=== PATIENT | male | born 1950 | race Caucasian/White ===

== ENCOUNTER 2018-10-14 01:58 | Emergency (ER) | payer MEDICARE, BC ==
[2018-10-14 02:10] LABS: URINE BILIRUBIN NEGATIVE (NEGATIVE); URINE BLOOD SMALL (NEGATIVE); URINE GLUCOSE (UA) NEGATIVE (NEGATIVE); URINE KETONE NEGATIVE (NEGATIVE); URINE LEUKOCYTE ESTERASE MODERATE (NEGATIVE); URINE NITRITE NEGATIVE (NEGATIVE); URINE PROTEIN NEGATIVE (NEGATIVE); URINE UROBILINOGEN 0.2 E.U./dL (0.20 - 1.00)
[2018-10-14 02:11] LABS: URINE APPEARANCE SL CLOUDY; URINE COLOR YELLOW
[2018-10-14 02:15] LABS: URINE BACTERIA FEW; URINE EPITHELIAL CELLS 0 - 2 (FEW); URINE RBC 0 - 2 (NONE SEEN)
[2018-10-14] MEDS ORDERED: CIPROFLOXACIN HCL 500 MG TABLET PO ONE (02:39)
[2018-10-14] MEDS ORDERED: ACETAMINOPHEN 500 MG TABLET PO ONE (02:40)
--- NOTE | 2018-10-14 02:45 | Emergency Department Record ---
History of Present Illness - General Chief complaint: Male Urogenital Problem Stated complaint: UTI/FEVER Time Seen by Provider: 10/14/18 02:19 Source: Patient Mode of Arrival: Ambulatory Limitations: No limitations - History of Present Illness Initial comments: Pt to ED with for concern of bladder infection. Noted urine with strong odor two days ago. Tonight urinary frequency and urgency with fever. No flank pain, no nausea. Hx of similar twice in the past. No hx renal stones. No blood in urine. Onset/Timin -: Days(s) Quality: Aching Reports: Fever - Related Data Sexually active: Yes Home Medications Medication Instructions Recorded Confirmed Last Taken Lisinopril [Zestril] 5 mg PO DAILY 10/14/18 10/14/18 Unknown Simvastatin 10 mg PO DAILY 10/14/18 10/14/18 10/14/18 Tamsulosin HCl [Flomax] 0.4 mg PO DAILY 10/14/18 10/14/18 10/14/18 Previous Rx's Medication Instructions Recorded Ciprofloxacin HCl [Cipro] 500 mg PO Q12HR 7 Days #14 tablet 10/14/18 Allergies Allergy/AdvReac Type Severity Reaction Status Date / Time No Known Drug Allergies Allergy Verified 10/14/18 02:06 Travel Screening - Travel/Exposure Within Last 30 Days Have you traveled within the last 30 days?: No - Travel/Exposure Within Last Year Have you traveled outside the [place] in the last year?: No - Additonal Travel Details Have you been exposed to anyone with a communicable illness?: No - Travel Symptoms Symptom Screening: None Review of Systems Constitutional: Reports: Chills, Fever. Denies: Weakness Eyes: Denies: Eye discharge ENT: Denies: Congestion, Ear pain Respiratory: Denies: Cough Cardiovascular: Denies: Chest pain, Syncope Endocrine: Denies: Fatigue Gastrointestinal: Denies: Abdominal pain, Vomiting Genitourinary: Reports: As per HPI, Frequency, Urgency Musculoskeletal: Denies: Arthralgia, Back pain Skin: Denies: Bruising Neurological: Denies: Headache, Weakness Psychiatric: Denies: Anxiety Hematological/Lymphatic: Denies: Anemia Past Medical History - SOCIAL HISTORY Smoking Status: Never smoker Alcohol Use: None Drug Use: None - RESPIRATORY Hx Respiratory Disorders: No - CARDIOVASCULAR Hx Cardio Disorders: Yes Hx Hypertension: Yes Comment:: high cholesterol - NEURO Hx Neuro Disorders: No - GI Hx GI Disorders: No - Hx Prostate Problems: Yes Hx UTI: Yes - ENDOCRINE Hx Endocrine Disorders: No - MUSCULOSKELETAL Hx Musculoskeletal Disorders: No - PSYCH Hx Psych Problems: No - HEMATOLOGY/ONCOLOGY Hx Hematology/Oncology Disorders: No Family Medical History Any Significant Family History?: No Physical Exam - General General Appearance: Alert, Oriented x3, Cooperative, No acute distress - Head Head exam: Atraumatic - Eye Eye exam: Normal appearance, PERRL - ENT ENT exam: Mucous membranes moist Nasal Exam: Normal inspection Mouth exam: Normal external inspection - Neck Neck exam: Normal inspection - Respiratory Respiratory exam: Normal lung sounds bilaterally. negative: Respiratory distress - Cardiovascular Cardiovascular Exam: Regular rate, Normal rhythm - GI/Abdominal GI/Abdominal exam: Soft, Normal bowel sounds. negative: Guarding, Tenderness - Extremities Extremities exam: Normal inspection - Back Back exam: Reports: Normal inspection. Denies: CVA tenderness (R), CVA tenderness (L), Paraspinal tenderness - Neurological Neurological exam: Alert, Normal gait, Oriented X3 - Psychiatric Psychiatric exam: Normal affect, Normal mood - Skin Skin exam: Normal color Course Vital Signs 10/14/18 02:03 Temperature 101.2 F H Pulse Rate [ 97 H Pulse Ox Probe] Respiratory 20 Rate Blood Pressure 132/83 [Left Arm] Pulse Ox 99 - Reevaluation(s) Reevaluation #1: 10/14/18 02:49 seen and exam. Evidence of UTI. Culture sent. First dose Cipro and tylenol in ED. Home Medical Decision Making - Lab Data Lab Results 10/14/18 Range/Units 02:10 Urine Color Yellow Urine Appearance Sl cloudy Urine pH 7.0 (5.0-8.0) Ur Specific [place] 1.010 (1.002-1.030) Urine Protein Negative (NEGATIVE) Urine Glucose (UA) Negative (NEGATIVE) Urine Ketones Negative (NEGATIVE) Urine Blood Small H (NEGATIVE) Urine Nitrite Negative (NEGATIVE) Urine Bilirubin Negative (NEGATIVE) Urine Urobilinogen 0.2 (0.20 - 1.00) E.U./dL Ur Leukocyte Esterase Moderate H (NEGATIVE) Urine RBC 0 - 2 (NONE SEEN) Urine WBC 6 - 10 (0-2/hpf) Ur Epithelial Cells 0 - 2 (FEW) Urine Bacteria Few Disposition Disposition: Discharge Clinical Impression: UTI (urinary tract infection) Disposition: Home, Self-Care Condition: (1) Good Instructions: Urinary Tract Infection in Men (ED) Additional Instructions: take meds as instructed. See your physician in 3 days Return to the ED as needed. Prescriptions: Ciprofloxacin HCl [Cipro] 500 mg PO Q12HR 7 Days #14 tablet Forms: Patient Portal Access Time of Disposition: 02:45 Quality - Quality Measures Quality Measures: N/A - Blood Pressure Screening Does Patient Have Any of the Following: No Blood Pressure Classification: Pre-Hypertensive BP Reading Systolic Measurement: 132 Diastolic Measurement: 83 Screening for High Blood Pressure: < Pre-Hypertensive BP, F/U Documented > [G8950] Pre-Hypertensive Follow-up Interventions: Follow-up with rescreen every year.
== END 2018-10-14 02:56 | disposition home or self-care (01) ==
LOC: ER 01:58
DX: N39.0 Urinary tract infection, site not specified (principal); R50.81 Fever presenting with conditions classified elsewhere; I10 Essential (primary) hypertension
CPT/HCPCS: 81001; 99283

== ENCOUNTER 2018-10-14 21:16 | Inpatient (IN) | payer MEDICARE, BC ==
[2018-10-14] MEDS ORDERED: 0.9 % SODIUM CHLORIDE 1,000 ML BAG IV ONE ×2 (21:56→22:50)
[2018-10-14] MEDS ORDERED: IBUPROFEN 600 MG TABLET PO ONE (21:58)
[2018-10-14 21:59] LABS: ABSOLUTE NEUTROPHIL COUNT 19.93; HEMOGLOBIN 14.6 gm/dl (14.0-18.0); MEAN CELL VOLUME 84.8 fl (81-97); MEAN CORPUSCULAR HEMOGLOBIN 28.8 pg (27-33); MEAN PLATELET VOLUME 9.9 fl (7.4-10.4); PLATELET COUNT 185 K/uL (130-400); RED BLOOD COUNT 5.07 M/uL (4.40-5.70)
[2018-10-14 22:00] LABS: WHITE BLOOD COUNT W/O DIFF 23.6 K/uL (4.2-12.2)
[2018-10-14 22:13] LABS: BILIRUBIN,TOTAL 1.5 mg/dL (0.2-1.0); TOTAL PROTEIN 6.5 g/dL (6.6-8.7)
[2018-10-14 22:14] LABS: ALB/GLOB RATIO 1.7 (1.1-1.8); ALBUMIN 4.1 g/dL (4.0-5.0); CREATININE 1.4 mg/dL (0.7-1.2)
[2018-10-14 22:20] LABS: URINE APPEARANCE CLEAR; URINE BILIRUBIN NEGATIVE (NEGATIVE); URINE BLOOD SMALL (NEGATIVE); URINE COLOR YELLOW; URINE GLUCOSE (UA) NEGATIVE (NEGATIVE); URINE KETONE NEGATIVE (NEGATIVE); URINE LEUKOCYTE ESTERASE MODERATE (NEGATIVE); URINE NITRITE NEGATIVE (NEGATIVE); URINE PROTEIN NEGATIVE (NEGATIVE); URINE UROBILINOGEN 0.2 E.U./dL (0.20 - 1.00)
--- NOTE | 2018-10-14 22:24 | Emergency Department Record ---
History of Present Illness - General Chief Complaint: Fever Stated Complaint: FEVER Time Seen by Provider: 10/14/18 21:47 Source: Patient Mode of Arrival: Ambulatory Limitations: No limitations - History of Present Illness Initial Comments: pt was here 20 hrs ago for fever and uti. he states hes no better and, in fact, feels worse. he has body aches and chills and fever. no n/v. he took tylenol but is still running a temp.hes had 3 doses of cipro Complaint: Fever, Weakness Onset/Timin -: Days(s) Maximum Temperature: 104 F Temperature Source: Oral Associated Symptoms: Chills, Myalgias, Rigors Treatments Prior to Arrival: Acetaminophen Treatment Prior to Arrival Comment:: 700 mg - Related Data Previous Rx's Medication Instructions Recorded Ciprofloxacin HCl [Cipro] 500 mg PO Q12HR 7 Days #14 tablet 10/14/18 Allergies Allergy/AdvReac Type Severity Reaction Status Date / Time No Known Drug Allergies Allergy Verified 10/14/18 21:48 Travel Screening - Travel/Exposure Within Last 30 Days Have you traveled within the last 30 days?: No - Travel/Exposure Within Last Year Have you traveled outside the [place] in the last year?: No - Additonal Travel Details Have you been exposed to anyone with a communicable illness?: No - Travel Symptoms Symptom Screening: None Review of Systems Reviewed: No additional complaints except as noted below Constitutional: Reports: As per HPI, Chills, Fever, Malaise, Weakness. Denies: Night sweats, Weight change Eyes: Reports: As per HPI. Denies: Eye discharge, Eye pain, Photophobia, Vision change ENT: Reports: As per HPI. Denies: Congestion, Dental pain, Ear pain, Epistaxis, Hearing loss, Throat pain Respiratory: Reports: As per HPI. Denies: Cough, Dyspnea, Hemoptysis, Stridor, Wheezes Cardiovascular: Reports: As per HPI. Denies: Arrhythmia, Chest pain, Dyspnea on exertion, Edema, Murmurs, Orthopnea, Palpitations, Paroxysmal nocturnal dyspnea, Rheumatic Fever, Syncope Endocrine: Reports: As per HPI. Denies: Fatigue, Heat or cold intolerance, Polydipsia, Polyuria Gastrointestinal: Reports: As per HPI. Denies: Abdominal pain, Constipation, Diarrhea, Hematemesis, Hematochezia, Melena, Nausea, Vomiting Genitourinary: Reports: As per HPI. Denies: Dysuria, Frequency, Hematuria, Incontinence, Retention, Testicular pain, Testicular mass, Urgency Musculoskeletal: Reports: As per HPI, Myalgia. Denies: Arthralgia, Back pain, Gout, Joint swelling, Neck pain Skin: Reports: As per HPI. Denies: Bruising, Change in color, Change in hair/nails, Lesions, Pruritus, Rash Neurological: Reports: As per HPI. Denies: Abnormal gait, Confusion, Headache, Numbness, Paresthesias, Seizure, Tingling, Tremors, Vertigo, Weakness Psychiatric: Reports: As per HPI. Denies: Anxiety, Auditory hallucinations, Depression, Homicidal thoughts, Suicidal thoughts, Visual hallucinations Hematological/Lymphatic: Reports: As per HPI. Denies: Anemia, Blood Clots, Easy bleeding, Easy bruising, Swollen glands Past Medical History - SOCIAL HISTORY Smoking Status: Never smoker Alcohol Use: None Drug Use: None - RESPIRATORY Hx Respiratory Disorders: No - CARDIOVASCULAR Hx Cardio Disorders: Yes Hx Hypertension: Yes Comment:: high cholesterol - NEURO Hx Neuro Disorders: No - GI Hx GI Disorders: No - Hx Prostate Problems: Yes Hx UTI: Yes - ENDOCRINE Hx Endocrine Disorders: No - MUSCULOSKELETAL Hx Musculoskeletal Disorders: No - PSYCH Hx Psych Problems: No - HEMATOLOGY/ONCOLOGY Hx Hematology/Oncology Disorders: No Family Medical History Any Significant Family History?: No Physical Exam - General General Appearance: Alert, Oriented x3, Cooperative, Mild distress - Head Head exam: Normal inspection - Eye Eye exam: Normal appearance, PERRL, EOMI Pupils: Normal accommodation - ENT ENT exam: Normal exam, Mucous membranes moist, Normal external ear exam, Normal orophraynx Ear exam: Normal external inspection. negative: External canal tenderness Nasal Exam: Normal inspection. negative: Discharge, Sinus tenderness Mouth exam: Normal external inspection, Tongue normal Teeth exam: Normal inspection. negative: Dental caries Throat exam: Normal inspection. negative: Tonsillar erythema, Tonsillar exudate - Neck Neck exam: Normal inspection, Full ROM. negative: Tenderness - Respiratory Respiratory exam: Normal lung sounds bilaterally. negative: Respiratory distress - Cardiovascular Cardiovascular Exam: Normal rhythm, Normal heart sounds, Tachycardia - GI/Abdominal GI/Abdominal exam: Soft, Normal bowel sounds. negative: Tenderness - Rectal Rectal exam: Deferred - exam: Deferred - Extremities Extremities exam: Normal inspection, Full ROM, Normal capillary refill. negative: Tenderness - Back Back exam: Reports: Normal inspection, Full ROM. Denies: Muscle spasm, Rash noted, Tenderness - Neurological Neurological exam: Alert, CN II-XII intact, Normal gait, Oriented X3 - Psychiatric Psychiatric exam: Normal affect, Normal mood - Skin Skin exam: Dry, Intact, Normal color, Warm Course Vital Signs 10/14/18 10/14/18 21:26 21:48 Temperature 101.9 F H 101.9 F H Pulse Rate [ 135 H Pulse Ox Probe] Respiratory 20 20 Rate Blood Pressure 90/65 [Left Arm] Pulse Ox 96 Medical Decision Making - Lab Data Result diagrams: 10/14/18 21:45 10/14/18 21:45 Lab Results 10/14/18 10/14/18 Range/Units 21:45 21:45 WBC 23.6 H* (4.2-12.2) K/uL RBC 5.07 (4.40-5.70) M/uL Hgb 14.6 (14.0-18.0) gm/dl Hct 43.0 (42.0-52.0) % MCV 84.8 (81-97) fl MCH 28.8 (27-33) pg MCHC 34.0 (32-36) g/dl RDW 13.0 (11.5-14.5) % Plt Count 185 (130-400) K/uL MPV 9.9 (7.4-10.4) fl Neutrophils % 82.0 H (47-80) % Band Neutrophils % 2.0 (0-5) % Eosinophils % Not Reportable Basophils % Not Reportable Absolute Neutrophils 19.93 Lymphocytes 6.0 L (16-45) % Monocytes 10.0 H (0-9) % Basophils 0.0 (0-6) % Eosinophil Count 0.0 (0-6) % Sodium 139 (136-145) mmol/L Potassium 3.6 (3.4-4.5) mmol/L Chloride 104 (98-107) mmol/L Carbon Dioxide 23.0 (22-29) mmol/L Anion Gap 12.0 (7-16) BUN 15 (8-23) mg/dL Creatinine 1.4 H (0.7-1.2) mg/dL Estimated GFR 54 mL/min Random Glucose 129 H (74-109) mg/dL Calcium 8.7 L (8.8-10.2) mg/dL Total Bilirubin 1.50 H (0.2-1.0) mg/dL AST 29 (10.0-50.0) U/L ALT 24 (<41) U/L Alkaline Phosphatase 55 (40-129) U/L Total Protein 6.5 L (6.6-8.7) g/dL Albumin 4.1 (4.0-5.0) g/dL Globulin 2.4 (1.4-4.8) gm/dL Albumin/Globulin Ratio 1.7 (1.1-1.8) Disposition Disposition: Admit Clinical Impression: Pyelonephritis Disposition: Still a Patient at [facility] Decision to Admit: Admit from ER Decision to Admit Date: 10/14/18 Decision to Admit Time: 23:49 Forms: Patient Portal Access Quality - Quality Measures Quality Measures: N/A - Blood Pressure Screening Does Patient Have Any of the Following: No Blood Pressure Classification: Normal BP Reading Systolic Measurement: 89 Diastolic Measurement: 61 Screening for High Blood Pressure: < Normal BP, F/U Not Required > [G8783]
[2018-10-14 22:25] LABS: URINE BACTERIA 1+; URINE SQUAMOUS EPITHELIAL CELL 0 - 2 /hpf
[2018-10-14 22:26] LABS: URINE EPITHELIAL CELLS 0 - 2 (FEW); URINE WBC 21 - 35 (0-2/hpf)
[2018-10-14] MEDS ORDERED: AMPICILLIN SODIUM/SULBACTAM NA 3 G in 0.9 % SODIUM CHLORIDE 100ML 100 ML IVPB ONE (23:43)
[2018-10-15] MEDS ORDERED: AMPICILLIN SODIUM/SULBACTAM NA 3 G in 0.9 % SODIUM CHLORIDE 100ML 100 ML IVPB SCH ×2 (00:42→06:00)
[2018-10-15] MEDS ORDERED: 0.9 % SODIUM CHLORIDE 1000ML 1,000 ML IV PRN ×2 (00:42→02:45)
[2018-10-15] MEDS ORDERED: ACETAMINOPHEN 500 MG TABLET PO PRN (00:42)
[2018-10-15] MEDS ORDERED: PNEUM 23-VAL ADULT IM ONE (00:56)
[2018-10-15] MEDS ORDERED: HEPARIN SODIUM 1000 UNIT/1 ML 10ML VIAL IVP ONE (05:22)
[2018-10-15] MEDS ORDERED: HEPARIN SODIUM/D5W 25,000 UNITS/500 ML BAG IV SCH (05:30)
[2018-10-15 05:32] LABS: ABSOLUTE NEUTROPHIL COUNT 20.12; HEMATOCRIT 39.4 % (42.0-52.0); HEMOGLOBIN 13.2 gm/dl (14.0-18.0); MEAN CORPUSCULAR HEMOGLOBIN 28.8 pg (27-33); MEAN CORPUSCULAR HGB CONC 33.5 g/dl (32-36); MEAN PLATELET VOLUME 9.2 fl (7.4-10.4); PLATELET COUNT 152 K/uL (130-400); RED BLOOD COUNT 4.58 M/uL (4.40-5.70); RED CELL DISTRIBUTION WIDTH 13.2 % (11.5-14.5)
[2018-10-15 05:35] LABS: WHITE BLOOD COUNT W/O DIFF 24.3 K/uL (4.2-12.2)
[2018-10-15 05:40] LABS: INR 1.4; PROTHROMBIN TIME (PATIENT) 14.2 SECONDS (9.5-12.1)
[2018-10-15 05:41] LABS: BLOOD UREA NITROGEN 13 mg/dL (8-23); CREATININE 1.3 mg/dL (0.7-1.2); EST GLOMERULAR FILTRATION RATE 59 mL/min; GLUCOSE,RANDOM 103 mg/dL (74-109)
[2018-10-15 05:42] LABS: PARTIAL THROMBOPLASTIN TIME 33.8 SECONDS (24.5-39.1)
[2018-10-15] MEDS ORDERED: AMIODARONE 360MG/200ML MAINT 360 MG/200 ML ML IV ONE (05:52)
--- NOTE | 2018-10-15 10:07 | History & Physical ---
History of Present Illness - Date of Service Date of Service for History & Physical: 10/17/18 - History of Present Illness Admitting Diagnosis: pyelonephritis History of Present Illness: Ajit Fajardo is a 68 y.o. M who presented to the ED on 10/14/18 (for the 2nd time) at approximately 2100. He had been to the ED approx. 20 hours prior and was dx'd with UTI and sent home on Cipro. He returned to the ED d/t feeling worse with body aches, chills and fever. Despite taking Tylenol, he was still running a temp. He was admitted to the floor per the ED physician, Dr. Huerta. ED Course -Vitals: T 101.9, HR 135, RR 20, BP 90/65, SP02 96% on RA -WBC 23.6, Neutrophils 82 He admitted to the inpatient floor around midnight. He became significantly more hypotensive, despite receiving 3L of Fluid as ordered by the ED physician. EKG showing Aflutter. ED physician, Dr. Huerta, facilitated transfer to [facility] for higher level of care. Pt left the facility around 0650. Travel Screening - Travel/Exposure Within Last 30 Days Have you traveled within the last 30 days?: Yes Location Detail:: [place] - Travel/Exposure Within Last Year Have you traveled outside the [place] in the last year?: No - Additonal Travel Details Have you been exposed to anyone with a communicable illness?: No - Travel Symptoms Symptom Screening: Fever (GT 100.4), Joint & Muscle Aches, Weakness, Lack of Appetite, Chills Review of Systems Reviewed: No additional complaints except as noted below Constitutional: Reports: As per HPI, Chills, Fever, Malaise, Weakness. Denies: Night sweats, Weight change Eyes: Reports: As per HPI. Denies: Eye discharge, Eye pain, Photophobia, Vision change ENT: Reports: As per HPI. Denies: Congestion, Dental pain, Ear pain, Epistaxis, Hearing loss, Throat pain Respiratory: Reports: As per HPI. Denies: Cough, Dyspnea, Hemoptysis, Stridor, Wheezes Cardiovascular: Reports: As per HPI. Denies: Arrhythmia, Chest pain, Dyspnea on exertion, Edema, Murmurs, Orthopnea, Palpitations, Paroxysmal nocturnal dyspnea, Rheumatic Fever, Syncope Endocrine: Reports: As per HPI. Denies: Fatigue, Heat or cold intolerance, Polydipsia, Polyuria Gastrointestinal: Reports: As per HPI. Denies: Abdominal pain, Constipation, Diarrhea, Hematemesis, Hematochezia, Melena, Nausea, Vomiting Genitourinary: Reports: As per HPI. Denies: Dysuria, Frequency, Hematuria, Incontinence, Retention, Testicular pain, Testicular mass, Urgency Musculoskeletal: Reports: As per HPI, Myalgia. Denies: Arthralgia, Back pain, Gout, Joint swelling, Neck pain Skin: Reports: As per HPI. Denies: Bruising, Change in color, Change in hair/nails, Lesions, Pruritus, Rash Neurological: Reports: As per HPI. Denies: Abnormal gait, Confusion, Headache, Numbness, Paresthesias, Seizure, Tingling, Tremors, Vertigo, Weakness Psychiatric: Reports: As per HPI. Denies: Anxiety, Auditory hallucinations, Depression, Homicidal thoughts, Suicidal thoughts, Visual hallucinations Hematological/Lymphatic: Reports: As per HPI. Denies: Anemia, Blood Clots, Easy bleeding, Easy bruising, Swollen glands Past Medical History - SOCIAL HISTORY Smoking Status: Never smoker Alcohol Use: None Drug Use: None - RESPIRATORY Hx Respiratory Disorders: No - CARDIOVASCULAR Hx Cardio Disorders: Yes Hx Hypertension: Yes Hx Irregular Heartbeat: Yes (afib) Comment:: high cholesterol - NEURO Hx Neuro Disorders: No - GI Hx GI Disorders: No - Hx Prostate Problems: Yes Hx UTI: Yes - ENDOCRINE Hx Endocrine Disorders: No - MUSCULOSKELETAL Hx Musculoskeletal Disorders: No - PSYCH Hx Psych Problems: No - HEMATOLOGY/ONCOLOGY Hx Hematology/Oncology Disorders: No Family Medical History Any Significant Family History?: No H&P Meds/Allergies - Allergies Allergies: Allergies Allergy/AdvReac Type Severity Reaction Status Date / Time No Known Drug Allergies Allergy Verified 10/14/18 21:48 - Home Medications Previous Rx's Medication Instructions Recorded Ciprofloxacin HCl [Cipro] 500 mg PO Q12HR 7 Days #14 tablet 10/14/18 Physical Exam - Vital Signs Vital Signs: Vital Signs - Last 24 Hrs Temp Pulse Pulse Pulse Resp BP BP 10/15/18 06:30 98.9 F 87 17 96/62 10/15/18 06:00 98.8 F 92 H 17 99/60 10/15/18 05:30 109 H 18 109/62 10/15/18 04:55 94 H 18 98/65 10/15/18 04:45 98.7 F 89 18 66/49 10/15/18 03:45 98.6 F 90 16 85/55 10/15/18 02:37 97.8 F 64 16 78/41 10/15/18 00:32 98.1 F 81 18 80/56 10/15/18 00:27 91 H 20 80/49 10/14/18 23:41 98.9 F 105 H 20 89/61 10/14/18 22:44 99 F 90 20 86/56 10/14/18 21:48 101.9 F H 20 10/14/18 21:26 101.9 F H 135 H 20 90/65 Pulse Ox 10/15/18 06:30 99 10/15/18 06:00 99 10/15/18 05:30 10/15/18 04:55 10/15/18 04:45 98 10/15/18 03:45 99 10/15/18 02:37 96 10/15/18 00:32 96 10/15/18 00:27 95 10/14/18 23:41 97 10/14/18 22:44 96 10/14/18 21:48 10/14/18 21:26 96 - General General Appearance: Alert (as per ED physician note) - ENT ENT exam: Normal exam, Mucous membranes moist, Normal external ear exam, Normal orophraynx Ear exam: Normal external inspection. negative: External canal tenderness Nasal Exam: Normal inspection. negative: Discharge, Sinus tenderness Mouth exam: Normal external inspection, Tongue normal Teeth exam: Normal inspection. negative: Dental caries Throat exam: Normal inspection. negative: Tonsillar erythema, Tonsillar exudate - Neck Neck exam: Normal inspection, Full ROM. negative: Tenderness - Respiratory Respiratory exam: Normal lung sounds bilaterally. negative: Respiratory distress - Cardiovascular Cardiovascular Exam: Irregular rhythm. negative: Normal rhythm - Neurological Neurological exam: Alert Results - Labs Result Diagrams: 10/15/18 05:30 10/15/18 05:30 Labs Last 24 Hours: Laboratory Results - last 24 hr 10/14/18 10/14/18 10/14/18 21:45 21:45 22:24 WBC 23.6 H* RBC 5.07 Hgb 14.6 Hct 43.0 MCV 84.8 MCH 28.8 MCHC 34.0 RDW 13.0 Plt Count 185 MPV 9.9 Neutrophils % 82.0 H Band Neutrophils % 2.0 Eosinophils % Not Reportable Basophils % Not Reportable Absolute Neutrophils 19.93 Lymphocytes 6.0 L Monocytes 10.0 H Basophils 0.0 Eosinophil Count 0.0 PT INR APTT Sodium 139 Potassium 3.6 Chloride 104 Carbon Dioxide 23.0 Anion Gap 12.0 BUN 15 Creatinine 1.4 H Estimated GFR 54 Random Glucose 129 H Lactic Acid Calcium 8.7 L Total Bilirubin 1.50 H AST 29 ALT 24 Alkaline Phosphatase 55 Troponin T Total Protein 6.5 L Albumin 4.1 Globulin 2.4 Albumin/Globulin Ratio 1.7 Urine Color Yellow Urine Appearance Clear Urine pH 6.0 Ur Specific [place] 1.015 Urine Protein Negative Urine Glucose (UA) Negative Urine Ketones Negative Urine Blood Small H Urine Nitrite Negative Urine Bilirubin Negative Urine Urobilinogen 0.2 Ur Leukocyte Esterase Moderate H Urine RBC 7 - 10 Urine WBC 21 - 35 Ur Epithelial Cells 0 - 2 U Non-Squamous Epi Cells 0 - 2 Urine Bacteria 1+ 10/15/18 10/15/18 10/15/18 05:30 05:30 05:30 WBC 24.3 H* RBC 4.58 Hgb 13.2 L Hct 39.4 L MCV 86.0 MCH 28.8 MCHC 33.5 RDW 13.2 Plt Count 152 MPV 9.2 Neutrophils % 80.0 Band Neutrophils % 3.0 Eosinophils % Not Reportable Basophils % Not Reportable Absolute Neutrophils 20.12 Lymphocytes 7.0 L Monocytes 10.0 H Basophils 0.0 Eosinophil Count 0.0 PT 14.2 H INR 1.4 APTT 33.8 Sodium 139 Potassium 4.0 Chloride 107 Carbon Dioxide 22.0 Anion Gap 10.0 BUN 13 Creatinine 1.3 H Estimated GFR 59 Random Glucose 103 Lactic Acid Calcium 7.7 L Total Bilirubin AST ALT Alkaline Phosphatase Troponin T < 0.010 Total Protein Albumin Globulin Albumin/Globulin Ratio Urine Color Urine Appearance Urine pH Ur Specific [place] Urine Protein Urine Glucose (UA) Urine Ketones Urine Blood Urine Nitrite Urine Bilirubin Urine Urobilinogen Ur Leukocyte Esterase Urine RBC Urine WBC Ur Epithelial Cells U Non-Squamous Epi Cells Urine Bacteria 10/15/18 05:47 WBC RBC Hgb Hct MCV MCH MCHC RDW Plt Count MPV Neutrophils % Band Neutrophils % Eosinophils % Basophils % Absolute Neutrophils Lymphocytes Monocytes Basophils Eosinophil Count PT INR APTT Sodium Potassium Chloride Carbon Dioxide Anion Gap BUN Creatinine Estimated GFR Random Glucose Lactic Acid 1.5 Calcium Total Bilirubin AST ALT Alkaline Phosphatase Troponin T Total Protein Albumin Globulin Albumin/Globulin Ratio Urine Color Urine Appearance Urine pH Ur Specific [place] Urine Protein Urine Glucose (UA) Urine Ketones Urine Blood Urine Nitrite Urine Bilirubin Urine Urobilinogen Ur Leukocyte Esterase Urine RBC Urine WBC Ur Epithelial Cells U Non-Squamous Epi Cells Urine Bacteria VTE H&P Assessment - Risk for VTE Risk for VTE: Yes Risk Level: High Risk Assessment Date: 10/14/18 Risk Assessment Time: 22:00 VTE Orders Placed or Will Be Placed: No VTE Reason for No Prophylaxis: Not Indicated Plan - Inpatient Certification Inpatient Certification: Admit to inpatient care: Based on my medical assessment, after consideration of patient's risk factors (age, co-morbidities and patient presenting symptoms and acuity), I expect that this patient will remain in the hospital greater than or equal to two midnights and that the services needed warrant inpatient care because: Patient Risk Factors: [] Estimated length of stay: [] The patient may reasonably be expected to be discharged or transferred to a hospital within 96 hours after admission to [facility]. Services needed: [] Post hospital care (if known): [] I certify that my determination is in accordance with my understanding of Medicare requirements for reasonable and necessary inpatient services. - Detailed Diagnosis and Plan (1) UTI (urinary tract infection) Status: Acute Base Code: N39.0 - URINARY TRACT INFECTION, SITE NOT SPECIFIED Comment: 10/15/18 -Transfered to [facility] d/t likely sepsis (2) Full code status Status: Acute Base Code: Z78.9 - OTHER SPECIFIED HEALTH STATUS (3) DVT prophylaxis Status: Acute Base Code: Z29.9 - ENCOUNTER FOR PROPHYLACTIC MEASURES, UNSPECIFIED Comment: 10/15/18 -Pt transfered to higher level of care
--- NOTE | 2018-10-15 10:07 | Discharge Summary ---
Providers Discharge Summary Date: 10/15/18 Date of admission: 10/15/18 00:28 Attending physician: ANA AGUIRRE Primary care physician: NUPUR OSBORNE M.D. Physical Exam - Vital Signs Vital Signs: Vital Signs - Last 24 Hrs Temp Pulse Pulse Pulse Resp BP BP 10/15/18 06:30 98.9 F 87 17 96/62 10/15/18 06:00 98.8 F 92 H 17 99/60 10/15/18 05:30 109 H 18 109/62 10/15/18 04:55 94 H 18 98/65 10/15/18 04:45 98.7 F 89 18 66/49 10/15/18 03:45 98.6 F 90 16 85/55 10/15/18 02:37 97.8 F 64 16 78/41 10/15/18 00:32 98.1 F 81 18 80/56 10/15/18 00:27 91 H 20 80/49 10/14/18 23:41 98.9 F 105 H 20 89/61 10/14/18 22:44 99 F 90 20 86/56 10/14/18 21:48 101.9 F H 20 10/14/18 21:26 101.9 F H 135 H 20 90/65 Pulse Ox 10/15/18 06:30 99 10/15/18 06:00 99 10/15/18 05:30 10/15/18 04:55 10/15/18 04:45 98 10/15/18 03:45 99 10/15/18 02:37 96 10/15/18 00:32 96 10/15/18 00:27 95 10/14/18 23:41 97 10/14/18 22:44 96 10/14/18 21:48 10/14/18 21:26 96 - General General Appearance: Alert - Neck Neck exam: negative: Tenderness - Cardiovascular Cardiovascular Exam: Irregular rhythm - Neurological Neurological exam: Alert Hospitalization - Hospitalization Admission Diagnosis: pyelonephritis - Problem List/Discharge Diagnosis (1) UTI (urinary tract infection) Status: Acute Base Code: N39.0 - URINARY TRACT INFECTION, SITE NOT SPECIFIED Comment: 10/15/18 -Transfered to [facility] d/t likely sepsis (2) DVT prophylaxis Status: Acute Base Code: Z29.9 - ENCOUNTER FOR PROPHYLACTIC MEASURES, UNSPECIFIED Comment: 10/15/18 -Pt transfered to higher level of care (3) Full code status Status: Acute Base Code: Z78.9 - OTHER SPECIFIED HEALTH STATUS - Hospitalization Course Disposition: Acute Care Hospital Transfer Hospital Course: Ajit Fajardo is a 68 y.o. M who presented to the ED on 10/14/18 (for the 2nd time) at approximately 2100. He had been to the ED approx. 20 hours prior and was dx'd with UTI and sent home on Cipro. He returned to the ED d/t feeling worse with body aches, chills and fever. Despite taking Tylenol, he was still running a temp. He was admitted to the floor per the ED physician, Dr. Huerta. ED Course -Vitals: T 101.9, HR 135, RR 20, BP 90/65, SP02 96% on RA -WBC 23.6, Neutrophils 82 He admitted to the inpatient floor around midnight. He became significantly more hypotensive, despite receiving 3L of Fluid as ordered by the ED physician. EKG showing Aflutter. ED physician, Dr. Huerta, facilitated transfer to [facility] for higher level of care. Pt left the facility around 0650. Procedures: Cardiology Procedures 10/15/18 04:59 Ad Writer .Continuous EKG NOW 10/15/18 05:55 EKG NOW Abnormal Labs: Abnormal Lab Results 10/14/18 10/14/18 10/14/18 Range/Units 21:45 21:45 22:24 WBC 23.6 H* (4.2-12.2) K/uL Hgb (14.0-18.0) gm/dl Hct (42.0-52.0) % Neutrophils % 82.0 H (47-80) % Lymphocytes 6.0 L (16-45) % Monocytes 10.0 H (0-9) % PT (9.5-12.1) SECONDS Creatinine 1.4 H (0.7-1.2) mg/dL Random Glucose 129 H (74-109) mg/dL Calcium 8.7 L (8.8-10.2) mg/dL Total Bilirubin 1.50 H (0.2-1.0) mg/dL Total Protein 6.5 L (6.6-8.7) g/dL Urine Blood Small H (NEGATIVE) Ur Leukocyte Esterase Moderate H (NEGATIVE) 10/15/18 10/15/18 10/15/18 Range/Units 05:30 05:30 05:30 WBC 24.3 H* (4.2-12.2) K/uL Hgb 13.2 L (14.0-18.0) gm/dl Hct 39.4 L (42.0-52.0) % Neutrophils % (47-80) % Lymphocytes 7.0 L (16-45) % Monocytes 10.0 H (0-9) % PT 14.2 H (9.5-12.1) SECONDS Creatinine 1.3 H (0.7-1.2) mg/dL Random Glucose (74-109) mg/dL Calcium 7.7 L (8.8-10.2) mg/dL Total Bilirubin (0.2-1.0) mg/dL Total Protein (6.6-8.7) g/dL Urine Blood (NEGATIVE) Ur Leukocyte Esterase (NEGATIVE) Condition at Discharge: (3) Guarded Discharge Medications - Discharge Medications Home Medications: Ambulatory Orders Ciprofloxacin HCl [Cipro] 500 mg PO Q12HR 7 Days #14 tablet 10/14/18 [Last Taken Unknown] Lisinopril [Zestril] 5 mg PO DAILY 10/14/18 [Last Taken Unknown] Simvastatin 10 mg PO DAILY 10/14/18 [Last Taken 10/14/18] Tamsulosin HCl [Flomax] 0.4 mg PO DAILY 10/14/18 [Last Taken 10/14/18] Discharge Plan - Discharge Instructions Quality Measures - Quality Measures Quality Measures: Advance Directives, Documentation of Current Medications in Medical Record, Elder Maltreatment Screen and Follow-Up Plan, Screening for High Blood Pressure and F/U Documented - Current Medications Quality Measure: Measure #130: Documentation of Current Medications Documentation of Current Medications: <Current Medications Documented/Reviewed> [G8427] - Blood Pressure Screening Quality Measure: Screening for High Blood Pressure and Follow-Up Documented Does Patient Have Any of the Following: No Blood Pressure Classification: Normal BP Reading Systolic Measurement: 96 Diastolic Measurement: 62 Screening for High Blood Pressure: < Normal BP, F/U Not Required > [G8783] - Advance Directives Quality Measure: Measure #47: Care Plan Advance Directives Established: No Advance Directives Information Provided To Patient: Already Provided Advance Directives on File: No Living Will: No Power of Risk Control Consultant: No Advance Care Planning: <Care Plan/Decision Maker Documented; Discussed & Documented> [[id number]] - Elder Abuse Suspicion Index Screening: Elder Abuse Suspicion Index Screening Rely on people for bathing, dressing, shopping, banking, etc: No Prevented from getting food, clothes, medication, etc: No Made to feel shamed or threatened by someone: No Forced to sign papers or use money against will: No Feel afraid, touched in ways not wanted or hurt physically: No Poor eye contact, withdrawn, malnourished, cuts or bruises: No Screening Result: Negative result EASI Reference Information: Sidney COLLIER, Yamini C, Marko D, Cate Cowart.Development and validation of a tool to assist physicians identification of elder abuse: The Elder Abuse Suspicion Index (EASI ). Journal of Elder Abuse and Neglect, 2008; 20 (3): 276-300. - Elder Maltreatment Screen Quality Measures: Elder Maltreatment Screen and Follow-Up Plan Elder Maltreatment Screen: <Negative, No Follow-Up Plan Required> [[id number]]
[2018-10-15] MEDS ORDERED: TAMSULOSIN HCL 0.4 MG CAP.ER.24H PO SCH (22:00)
[2018-10-15] MEDS ORDERED: SIMVASTATIN 10MG TABLET PO SCH (22:00)
== END 2018-10-15 06:50 | disposition short-term general hospital (02) | DRG 690 ==
LOC: ER 21:16 → MEDSURG 10-15 00:28
PROVIDERS: ADMIT Internal Medicine; ATTEND Internal Medicine
DX: N12 Tubulo-interstitial nephritis, not specified as acute or chronic (principal); R53.81 Other malaise; M79.10 Myalgia, unspecified site; I10 Essential (primary) hypertension; I48.91 Unspecified atrial fibrillation; E78.00 Pure hypercholesterolemia, unspecified
CPT/HCPCS: 80053; 81001; 85027; J0295; 80048; 83605; 84484; 85610; 85730; 93005; 93010; 96365; 99236; 99285; J7030